=== PATIENT | female | born 1985 | race Caucasian/White ===

== ENCOUNTER 2018-08-13 20:37 | Emergency (ER) | payer OTHER ==
[~2018-08-13] VITALS: Ht 167.6 cm; Wt 90.7 kg
[2018-08-13 21:05] LABS: URINE BLOOD 2+ (Negative); URINE CLARITY CLEAR; URINE COLOR YELLOW; URINE GLUCOSE-RANDOM NEGATIVE (Negative); URINE KETONES 1+ (Negative); URINE LEUKOCYTES-REFLEX NEGATIVE (Negative); URINE NITRITE-REFLEX NEGATIVE (Negative); URINE PROTEIN 3+ (Negative); URINE SPECIFIC GRAVITY >= 1.030 (1.005-1.030); URINE UROBILINOGEN 0.2 E.U./dl (0.2-1.0)
[2018-08-13 21:06] LABS: ICTOTEST (BILI CONFIRMATORY) Negative (Negative); URINE BILIRUBIN 2+ (Negative)
[2018-08-13 21:14] LABS: BACTERIA-REFLEX >30 Many /HPF (None Seen); CASTS None Seen /LPF (None Seen); MUCUS 0-3 Light strn/LPF (None Seen); SQUAMOUS >10 Many /LPF (0-3); URINE RBC 3-10 Few /HPF (0-2); URINE WBC-REFLEX 6-15 Few /HPF (0-5)
[2018-08-13 21:15] LABS: CRYSTALS None Seen /LPF (None Seen)
[2018-08-13 21:30] LABS: ABSOLUTE BASOPHILS 0.1 thou/uL (0.0-0.2); ABSOLUTE LYMPHOCYTES 1.4 thou/uL (0.8-5.3); ABSOLUTE MONOCYTES 0.5 thou/uL (0.0-1.2); ABSOLUTE NEUTROPHILS 8.7 thou/uL (1.6-8.1); BASOPHILS 0.6 %; HEMATOCRIT 42.6 % (37.0-47.0); HEMOGLOBIN 14.5 gm/dL (12.0-15.0); LYMPHOCYTES 13.5 %; MCH 29.8 pg (26.0-34.0); MCHC 34.1 g/dL (28.0-37.0); MCV 87.3 fL (80.0-100.0); MONOCYTES 4.5 %; MPV 9.1 fl. (7.2-11.1); NUCLEATED RBCS 0 /100WBC; PLATELET COUNT* 277 thou/uL (150-400); POLYS 81.4 %; RBC 4.87 mil/uL (4.20-5.00); RDW-CV 13.2 % (10.5-14.5); WBC 10.7 thou/uL (4.0-11.0)
[2018-08-13 21:37] LABS: CALCIUM 9.4 mg/dL (8.5-10.1); CREATININE 0.9 mg/dL (0.6-1.3)
[2018-08-13 21:41] LABS: ALBUMIN 4.9 g/dL (3.4-5.0); TOTAL BILIRUBIN 0.7 mg/dL (<0.1-1.0); TOTAL PROTEIN 9.4 g/dL (6.4-8.2)
[2018-08-13] MEDS ORDERED: ZOFRAN ODT4 MG PO (22:56)
[2018-08-13] MEDS ORDERED: POTASSIUM20 PO (22:56)
[2018-08-13] MEDS ORDERED: BACTRIM DS TAB1 EACH PO (22:56)
[2018-08-14 01:11] VITALS: BP 172/104
== END 2018-08-14 01:14 | disposition home or self-care (01) ==
LOC: M.ERS 20:37
PROVIDERS: Physician Assistant
DX: N39.0 Urinary tract infection, site not specified (principal); R11.2 Nausea with vomiting, unspecified; Z98.890 Other specified postprocedural states

== ENCOUNTER 2018-10-29 06:26 | Emergency (ER) | payer OTHER ==
[~2018-10-29] VITALS: Ht 167.6 cm; Wt 90.7 kg
[~2018-10-29 06:26] MED LIST: BACTRIM DS TAB1 EACH PO; POTASSIUM20 PO; ZOFRAN ODT4 MG PO
[2018-10-29 06:59] LABS: MPV 8.7 fl. (7.2-11.1); NUCLEATED RBCS 0 /100WBC; PLATELET COUNT* 232 thou/uL (150-400); RBC 4.47 mil/uL (4.20-5.00)
[2018-10-29 07:01] LABS: HEMATOCRIT 39.7 % (37.0-47.0); HEMOGLOBIN 13.7 gm/dL (12.0-15.0); MCH 30.7 pg (26.0-34.0); MCHC 34.6 g/dL (28.0-37.0); MCV 88.8 fL (80.0-100.0); RDW-CV 13.8 % (10.5-14.5); WBC 9.2 thou/uL (4.0-11.0)
[2018-10-29 07:09] LABS: CALCIUM 9.5 mg/dL (8.5-10.1); CREATININE 0.9 mg/dL (0.6-1.3); POTASSIUM 3.2 mmol/L (3.5-5.1)
[2018-10-29 07:13] LABS: ALBUMIN 4.8 g/dL (3.4-5.0); TOTAL BILIRUBIN 1.4 mg/dL (<0.1-1.0); TOTAL PROTEIN 9.1 g/dL (6.4-8.2)
[2018-10-29 07:24] LABS: URINE BLOOD 2+ (Negative); URINE CLARITY CLEAR; URINE COLOR YELLOW; URINE GLUCOSE-RANDOM NEGATIVE (Negative); URINE KETONES 1+ (Negative); URINE LEUKOCYTES-REFLEX NEGATIVE (Negative); URINE NITRITE-REFLEX NEGATIVE (Negative); URINE PROTEIN 3+ (Negative); URINE SPECIFIC GRAVITY >= 1.030 (1.005-1.030)
[2018-10-29 07:27] LABS: URINE BILIRUBIN 2+ (Negative)
[2018-10-29 07:28] LABS: ICTOTEST (BILI CONFIRMATORY) Positive (Negative)
[2018-10-29 07:31] LABS: AMP/METHAMP Negative (Negative); BARBITURATES Negative (Negative); BENZODIAZEPINES POSITIVE (Negative); COCAINE Negative (Negative); METHADONE Negative (Negative); OPIATES POSITIVE (Negative); PCP Negative (Negative); THC Negative (Negative)
[2018-10-29 07:32] LABS: ABSOLUTE LYMPHOCYTES 1.1 thou/uL (0.8-5.3); ABSOLUTE NEUTROPHILS 8.1 thou/uL (1.6-8.1); PLATELET ESTIMATE ADEQUATE
[2018-10-29 07:57] LABS: SQUAMOUS >10 Many /LPF (0-3)
[2018-10-29 07:58] LABS: URINE WBC-REFLEX 0-5 Rare /HPF (0-5)
[2018-10-29 07:59] LABS: BACTERIA-REFLEX >30 Many /HPF (None Seen); CASTS None Seen /LPF (None Seen); MUCUS >6 Heavy strn/LPF (None Seen); URINE RBC 3-10 Few /HPF (0-2)
[2018-10-29 08:00] LABS: CRYSTALS None Seen /LPF (None Seen)
[2018-10-29] MEDS ORDERED: POTASSIUM20 PO (09:32)
[2018-10-29] MEDS ORDERED: PHENERGAN 25 MG25 M1 PO (09:32)
[2018-10-29] MEDS ORDERED: ZOFRAN ODT4 MG DISSOLVE (09:32)
[2018-10-29 09:49] VITALS: BP 149/97
== END 2018-10-29 09:50 | disposition home or self-care (01) ==
LOC: M.ERS 06:26
PROVIDERS: Emergency Medicine Emergency Medical Services; Family Medicine
DX: R11.2 Nausea with vomiting, unspecified (principal); I10 Essential (primary) hypertension; Z98.890 Other specified postprocedural states

== ENCOUNTER 2019-03-30 16:13 | Inpatient (IN) | payer OTHER ==
[~2019-03-30] VITALS: Ht 167.6 cm; Wt 90.7 kg
--- NOTE | ~2019-03-30 | H ---
[address] [address] HISTORY AND PHYSICAL Name: RENALDO RODARTE Room: [address] IN M.R.#: [id number] Admission: 03/30/19 Attend Phys: Brent Daigle, Discharge: 03/30/19 Date of : 89 Report #: [id number] THIS REPORT FOR: //name// Patient was here less than 24 hour please refer to the final summation note. Patient left AMA. By: [id number] Records Staff NEAL /ELAN
[~2019-03-30 16:13] MED LIST changes: +PHENERGAN 25 MG25 M1 PO; +ZOFRAN ODT4 MG DISSOLVE
[2019-03-30 16:20] VITALS: BP 181/109
[2019-03-30 16:44] LABS: HEMATOCRIT 40.5 % (37.0-47.0); HEMOGLOBIN 13.9 gm/dL (12.0-15.0); MCH 30.1 pg (26.0-34.0); MCHC 34.5 g/dL (28.0-37.0); MCV 87.3 fL (80.0-100.0); MPV 9.7 fl. (7.2-11.1); NUCLEATED RBCS 0 /100WBC; PLATELET COUNT* 269 thou/uL (150-400); RBC 4.64 mil/uL (4.20-5.00); RDW-CV 13.8 % (10.5-14.5); WBC 9.8 thou/uL (4.0-11.0)
[2019-03-30 16:49] LABS: CREATININE 0.9 mg/dL (0.6-1.3)
[2019-03-30 16:54] LABS: ALBUMIN 4.9 g/dL (3.4-5.0); TOTAL BILIRUBIN 0.4 mg/dL (<0.1-1.0); TOTAL PROTEIN 9.7 g/dL (6.4-8.2)
[2019-03-30 17:29] LABS: ABSOLUTE LYMPHOCYTES 1.3 thou/uL (0.8-5.3); ABSOLUTE NEUTROPHILS 8.5 thou/uL (1.6-8.1)
[2019-03-30 17:30] LABS: PLATELET ESTIMATE ADEQUATE
[2019-03-30 17:56] LABS: SALICYLATE < 2.8 mg/dL (2.8-20.0)
[2019-03-30 17:56] LABS: URINE BLOOD 2+ (Negative); URINE CLARITY CLOUDY; URINE COLOR BROWN; URINE GLUCOSE-RANDOM NEGATIVE (Negative); URINE KETONES TRACE (Negative); URINE LEUKOCYTES-REFLEX NEGATIVE (Negative); URINE NITRITE-REFLEX NEGATIVE (Negative); URINE PROTEIN 3+ (Negative); URINE SPECIFIC GRAVITY >= 1.030 (1.005-1.030); URINE UROBILINOGEN 0.2 E.U./dl (0.2-1.0)
[2019-03-30 17:57] LABS: ACETAMINOPHEN < 2 ug/mL (10-30)
[2019-03-30 17:58] LABS: ICTOTEST (BILI CONFIRMATORY) Negative (Negative); URINE BILIRUBIN 2+ (Negative)
[2019-03-30 18:04] LABS: AMP/METHAMP Negative (Negative); BARBITURATES Negative (Negative); BENZODIAZEPINES Negative (Negative); COCAINE Negative (Negative); METHADONE Negative (Negative); OPIATES POSITIVE (Negative); PCP Negative (Negative); SQUAMOUS 0-3 Few /LPF (0-3); THC Negative (Negative)
[2019-03-30 18:05] LABS: CRYSTALS None Seen /LPF (None Seen); HYALINE CASTS >10 Many /LPF (None Seen); MUCUS >6 Heavy strn/LPF (None Seen); URINE RBC 0-2 Rare /HPF (0-2); URINE WBC-REFLEX 0-5 Rare /HPF (0-5)
[2019-03-30 20:31] VITALS: BP 184/123
[2019-03-30 20:40] VITALS: BP 167/104
--- NOTE | 2019-03-31 14:01 | EKG ---
[place] [address] ELECTROCARDIOGRAM REPORT Name: RENALDO RODARTE JANNY Room: [address] IN .R.#: [id number] Admission: 03/30/19 Attend Phys: Brent Daigle, Discharge: 03/30/19 Date of : 89 Report #: [id number] THIS REPORT FOR: //name// [facility] ED Test Date: 2019-03-30 Test Time: 19:25:46 Pat Name: RENALDO RODARTE Department: Room: [facility] Gender: F [employer]: : 1985 Requested By: Adelina Richards Order Number: [id number] MD: Brice Quick Measurements Intervals [place] Rate: 101 P: 64 MI: 141 QRS: 52 QRSD: 72 T: 103 QT: 337 QTc: 437 Interpretive Statements Sinus tachycardia Possible anterior infarct, age indeterminate No previous ECG available for comparison Electronically Signed On 03-31-2019 14:00:28 CT TECH by Brice Quick [email or web address] <ELECTRONICALLY SIGNED> By: Brice Quick MD, [facility] 03/31/19 1400 24 24 Brice Quick MD, FACC /EPI
== END 2019-03-30 23:17 | disposition left against medical advice (07) | DRG 305 ==
LOC: M.ERS 16:13 → M.TBA-ER 19:16 → M.2W 20:44
PROVIDERS: Nurse Practitioner Family; ADMIT Family Medicine
DX: I16.0 Hypertensive urgency (principal); F11.23 Opioid dependence with withdrawal; R19.7 Diarrhea, unspecified; R00.0 Tachycardia, unspecified; I10 Essential (primary) hypertension; Z79.899 Other long term (current) drug therapy; Z88.8 Allergy status to other drugs, medicaments and biological substances